=== PATIENT | male | born 1995 | race Caucasian/White ===

== ENCOUNTER 2023-09-24 21:00 | Emergency (ER) | payer OTHER, SELFPAY ==
[2023-09-24 21:12] VITALS: BP 147/92
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
[2023-09-25 00:23] VITALS: BP 143/88
== END 2023-09-25 00:23 | disposition home or self-care (01) ==
LOC: EMR 21:00
PROVIDERS: EMERGENCY PHYSICIAN Emergency Medicine
DX: S92.252A Displaced fracture of navicular [scaphoid] of left foot, initial encounter for closed fracture (principal); V28.09XA Other motorcycle driver injured in noncollision transport accident in nontraffic accident, initial encounter; Y93.55 Activity, bike riding; R03.0 Elevated blood-pressure reading, without diagnosis of hypertension
CPT/HCPCS: 99283; 29125; 73110